=== PATIENT | female | born 1955 | race Caucasian/White ===

== ENCOUNTER 2017-10-11 21:46 | Observation (INO) | payer MEDICARE, OTHER ==
[~2017-10-11] VITALS: Ht 152.4 cm; Wt 97.2 kg
[~2017-10-11 21:46] MED LIST: AMOCLA500 PO; AMOCLA875 PO; ASPI81EC; ASPI81EC PO; ATOR20 PO; Abilify2 MG PO; CELE200; CELE200 PO; CEPH500 PO; CIPR500 PO; CLAR250 PO; CYAN1000 PO; DIAZIDE; DICL75ER; DULO60 PO; ENOX40I SC; EPIN.3I IM; EPIPEN; ERGO400 PO; ESCI10; ESTR1 PO; ESTR2; ESTR2 PO; FAMO20 PO; FENO145 PO; FLONASE ALLERG9.9 ML; FLUO10 PO; FLUOXETINE HCL60 MG PO; FLUT110OIA IH; FOSI10 PO; FURO20 PO; FURO40; FURO40 PO; HYDACE5 PO; HYDGUAL120 PO; HYDMOR2 PO; LEVFLO500 PO; MECL25 PO; METF500; METF500 PO; MORP10S PO; MORP15ER PO; MORP30 PO; NITR100CA PO; OMEP10ER PO; OMEP20ER PO; ONDA4 PO; OXYACE5T PO; PHENA200 PO; PIRO10 PO; POTA8; POTCHL10ER PO; PRAM.5 PO; PRED10 PO; PREG200 PO; PREG25; PREG75 PO; PROM25 PO; Prozac40 MG PO; ROPI1 PO; RXHYDACE PO; RXHYDMOR2 PO; RXONDA4ODT MM; RXPHEN200 PO; SENN187 PO; SUMA25; SUMA25 PO; TRIHYD253A; VENL75ER PO; VITAMIN B122500 MCG PO; VITAMIN D35000 UNIT PO; VOLTAREN; ZEGERID OTC 201 EACH PO; ZOLP5 PO; Zegerid 20 MG1 EACH PO; Zofran Odt8 MG SL; [UNRECOGNIZED DRUG - REMARK]; [UNRECOGNIZED DRUG - REMARK]; [UNRECOGNIZED DRUG - REMARK] PO
[2017-10-11] MEDS ORDERED: RANI150 PO (21:57)
[2017-10-11] MEDS ORDERED: HYDSUL200 PO (21:57)
[2017-10-11] MEDS ORDERED: MIRT15ST MM (21:58)
[2017-10-11 22:27] LABS: BASOPHILS ABSOLUTE AUTO 0.04 K/mm3 (0.00-0.23); BASOPHILS PERCENT AUTO 1 % (0-2); EOSINOPHILS ABSOLUTE AUTO 0.39 K/mm3 (0.00-0.68); EOSINOPHILS PERCENT AUTO 5 % (0-6); Hematocrit 40.1 % (33.0-51.0); Hemoglobin 12.6 g/dL (11.5-16.0); IMMATURE GRAN ABSOLUTE AUTO 0.01 K/mm3 (0.00-0.10); IMMATURE GRAN PERCENT AUTO 0 % (0-1); LYMPHOCYTES ABSOLUTE AUTO 3.94 K/mm3 (0.84-5.20); LYMPHOCYTES PERCENT AUTO 50 % (21-46); MONOCYTES ABSOLUTE AUTO 0.49 K/mm3 (0.16-1.47); MONOCYTES PERCENT AUTO 6 % (4-13); Mean Corpuscular HGB 28.2 pg (26.0-34.0); Mean Corpuscular HGB Conc 31.4 g/dL (31.5-36.5); Mean Corpuscular Volume 90 fL (80-100); Mean Platelet Volume 8.6 fL (9.1-12.4); NEUTROPHILS ABSOLUTE AUTO 3.05 K/mm3 (1.96-9.15); NEUTROPHILS PERCENT AUTO 39 % (41-73); Platelet Count 335 K/mm3 (150-400); RDW Coefficient Variation 13.8 % (11.7-14.2); RDW Standard Deviation 45.1 fL (35.1-46.3); Red Blood Cell Count 4.47 M/mm3 (3.80-5.20); White Blood Cell Count 7.92 K/mm3 (4.00-11.30)
[2017-10-11 22:47] LABS: Alanine Aminotransfer (ALT/SGP 29 U/L (12-78); Albumin, Blood 3.5 g/dL (3.4-5.0); Albumin/Globulin Ratio 0.9 (0.8-1.8); Alk Phos 82 U/L (50-136); Anion Gap 4 mmol/L (6-16); Aspartate Aminotrans (AST/SGOT 23 U/L (12-37); Bilirubin, Total 0.2 mg/dL (0.1-1.0); Blood Urea Nitrogen 14 mg/dL (8-24); Bun/Creatinine Ratio 21.8 (12.0-20.0); CO2, Blood 30 mmol/L (21-32); Calcium, Blood 8.7 mg/dL (8.5-10.1); Chloride, Blood 106 mmol/L (98-108); Creatinine, Blood 0.64 mg/dL (0.40-1.00); Glomerular Filtration Rate >60 (60-); Glucose, Blood 127 mg/dL (70-99); Potassium, Blood 3.7 mmol/L (3.5-5.5); Sodium, Blood 140 mmol/L (136-145); Total Protein, Blood 7.5 g/dL (6.4-8.2)
[2017-10-11 23:17] LABS: Troponin I <0.015 ng/mL (0.000-0.040)
[2017-10-11 23:18] LABS: Source, Urine Clean Catch
[2017-10-11 23:27] LABS: Bilirubin, Urine Neg (Neg); Blood, Urine Neg (Neg); Glucose Qualitative, Urine Neg (Neg); Ketones, Urine Neg (Neg); Leukocyte Esterase, Urine 3+ (Neg); Nitrite, Urine Neg (Neg); Protein, Urine Neg (Neg); Specific Gravity, Urine 1.015 (1.003-1.022); Urobilinogen, Urine NORM (Normal)
[2017-10-11 23:29] LABS: Appearance, Urine Clear (Clear); Color, Urine Amber (P-Yellow)
[2017-10-11 23:37] LABS: Bacteria Few /hpf; Red Blood Cells, Urine Not Seen /hpf (0-2); Squamous Epithelial Cells Few /hpf (Few); White Blood Cells, Urine 0-2 /hpf (0-5)
[2017-10-12 01:10] LABS: Cholesterol 164 mg/dL (50-200); HDL Cholesterol 41 mg/dL (>39); LDL/HDL RATIO Unable to Calculate; Low Density Lipoprotein Chol Unable to Calculate mg/dL (0-110); Triglycerides 540 mg/dL (30-160); Very Low Density Lipoprot Chol Unable to Calculate mg/dL (6-32)
[2017-10-12] MEDS ORDERED: ASPI81CH PO (14:34)
== END 2017-10-12 15:47 | disposition home or self-care (01) ==
LOC: ER 21:46 → MEDS 21:47
PROVIDERS: Emergency Medicine
DX: R40.4 Transient alteration of awareness (principal); I10 Essential (primary) hypertension; E11.9 Type 2 diabetes mellitus without complications; E66.01 Morbid (severe) obesity due to excess calories; M79.7 Fibromyalgia; F41.9 Anxiety disorder, unspecified; G47.33 Obstructive sleep apnea (adult) (pediatric); J32.9 Chronic sinusitis, unspecified; F32.9 Major depressive disorder, single episode, unspecified; M06.9 Rheumatoid arthritis, unspecified; M19.90 Unspecified osteoarthritis, unspecified site; Z88.5 Allergy status to narcotic agent; Z88.8 Allergy status to other drugs, medicaments and biological substances; K21.9 Gastro-esophageal reflux disease without esophagitis; Z68.41 Body mass index [BMI] 40.0-44.9, adult; Z79.899 Other long term (current) drug therapy; Z98.84 Bariatric surgery status; Z90.49 Acquired absence of other specified parts of digestive tract; Z90.710 Acquired absence of both cervix and uterus; Z98.890 Other specified postprocedural states; Z79.01 Long term (current) use of anticoagulants; Z96.651 Presence of right artificial knee joint
CPT/HCPCS: 70450; 70551; 80053; 80061; 81001; 82947; 84484; 85025; 87086; 93005; 93010; 93306; 93880; 94762; 96360; 97161; 99285; G0378; G8978; G8979; G8980; J2060; J2405; J7030

== ENCOUNTER 2019-07-01 10:38 | Day surgery (SDC) | payer MEDICARE, OTHER ==
[~2019-07-01] VITALS: Ht 152.4 cm; Wt 105.2 kg
[~2019-07-01 10:38] MED LIST changes: +ALEN70 PO; +ASPI81CH PO; +Amitriptyline150 MG PO; +EPIPEN 2-P0.3 MG/0.3 IM; +HYDSUL200 PO; +Imitrex100 MG PO; +MIRT15ST MM; +PSEU120ER PO; +RANI150 PO; +VITAMIN D31000 UNI2 PO; +Vitamin B-12100 MCG PO
--- NOTE | 2019-07-01 11:36 | NUR ---
07/01/19 1136 Montse Marks FIRST IV ATTEMPT IN RIGHT HAND WAS UNSUCCESSFUL. SECOND ATTEMPT IN RIGHT AC WAS SUCCESSFUL AND TOLERATED WELL. BOTH BY [facility].RCL.
== END 2019-07-01 12:56 | disposition home or self-care (01) ==
LOC: ORSCSDS 10:38
PROVIDERS: Internal Medicine Gastroenterology
PROC: 0DB68ZX Excision of Stomach, Via Natural or Artificial Opening Endoscopic, Diagnostic (ICD-10-PCS; principal; 2019-07-01 12:00)
PROC: 0DB98ZX Excision of Duodenum, Via Natural or Artificial Opening Endoscopic, Diagnostic (ICD-10-PCS; principal; 2019-07-01 12:00)
DX: K21.9 Gastro-esophageal reflux disease without esophagitis (principal); R11.10 Vomiting, unspecified; M79.7 Fibromyalgia; G47.33 Obstructive sleep apnea (adult) (pediatric); E11.9 Type 2 diabetes mellitus without complications; I10 Essential (primary) hypertension; Z98.84 Bariatric surgery status; K29.70 Gastritis, unspecified, without bleeding; F41.9 Anxiety disorder, unspecified; Z68.42 Body mass index [BMI] 45.0-49.9, adult; E66.9 Obesity, unspecified; Z79.899 Other long term (current) drug therapy
CPT/HCPCS: 88305; 88342; J2704; J7120

== ENCOUNTER → 2019-11-20 | Outpatient (CLI) | payer MEDICARE, OTHER ==
[2019-11-20 10:31] LABS: BASOPHILS ABSOLUTE AUTO 0.04 K/mm3 (0.00-0.23); BASOPHILS PERCENT AUTO 1 % (0-2); EOSINOPHILS ABSOLUTE AUTO 0.27 K/mm3 (0.00-0.68); EOSINOPHILS PERCENT AUTO 5 % (0-6); Hematocrit 42.1 % (33.0-51.0); Hemoglobin 13.4 g/dL (11.5-16.0); IMMATURE GRAN ABSOLUTE AUTO 0.01 K/mm3 (0.00-0.10); IMMATURE GRAN PERCENT AUTO 0 % (0-1); LYMPHOCYTES ABSOLUTE AUTO 2.06 K/mm3 (0.84-5.20); LYMPHOCYTES PERCENT AUTO 39 % (21-46); MONOCYTES PERCENT AUTO 6 % (4-13); Mean Corpuscular HGB 27.9 pg (26.0-34.0); Mean Corpuscular HGB Conc 31.8 g/dL (31.5-36.5); Mean Corpuscular Volume 88 fL (80-100); Mean Platelet Volume 8.7 fL (9.1-12.4); NEUTROPHILS ABSOLUTE AUTO 2.61 K/mm3 (1.96-9.15); NEUTROPHILS PERCENT AUTO 49 % (41-73); Platelet Count 405 K/mm3 (150-400); RDW Coefficient Variation 15.3 % (11.7-14.2); RDW Standard Deviation 48.9 fL (35.1-46.3); Red Blood Cell Count 4.81 M/mm3 (3.80-5.20); White Blood Cell Count 5.29 K/mm3 (4.00-11.30)
[2019-11-20 10:44] LABS: Albumin, Blood 3.6 g/dL (3.4-5.0); Albumin/Globulin Ratio 0.8 (0.8-1.8); Bilirubin, Total 0.5 mg/dL (0.1-1.0); Bun/Creatinine Ratio 7.9 (12.0-20.0); Calcium, Blood 9.5 mg/dL (8.5-10.1); Creatinine, Blood 1.01 mg/dL (0.40-1.00); Globulin, Blood 4.8 g/dL (2.2-4.0); Total Protein, Blood 8.4 g/dL (6.4-8.2)
== END | disposition home or self-care (01) ==
LOC: LAB SHORT 10:26 → LAB EV 10:26
PROVIDERS: Family Medicine
DX: R10.9 Unspecified abdominal pain (principal)
CPT/HCPCS: 80053; 83690; 85025

== ENCOUNTER 2020-06-23 09:14 | Emergency (ER) | payer MEDICARE, OTHER ==
[~2020-06-23] VITALS: Ht 152.4 cm; Wt 104.3 kg
[~2020-06-23 09:14] MED LIST changes: +Neurontin 100100 MG PO; +TRAZ150T57 PO
[2020-06-23 10:43] LABS: BASOPHILS ABSOLUTE AUTO 0.04 K/mm3 (0.00-0.23); BASOPHILS PERCENT AUTO 0 % (0-2); EOSINOPHILS ABSOLUTE AUTO 0.36 K/mm3 (0.00-0.68); EOSINOPHILS PERCENT AUTO 4 % (0-6); Hematocrit 37.6 % (33.0-51.0); Hemoglobin 11.4 g/dL (11.5-16.0); IMMATURE GRAN ABSOLUTE AUTO 0.03 K/mm3 (0.00-0.10); IMMATURE GRAN PERCENT AUTO 0 % (0-1); LYMPHOCYTES ABSOLUTE AUTO 3.04 K/mm3 (0.84-5.20); LYMPHOCYTES PERCENT AUTO 33 % (21-46); MONOCYTES ABSOLUTE AUTO 0.49 K/mm3 (0.16-1.47); MONOCYTES PERCENT AUTO 5 % (4-13); Mean Corpuscular HGB 26.6 pg (26.0-34.0); Mean Corpuscular HGB Conc 30.3 g/dL (31.5-36.5); Mean Corpuscular Volume 88 fL (80-100); Mean Platelet Volume 8.7 fL (9.1-12.4); NEUTROPHILS ABSOLUTE AUTO 5.27 K/mm3 (1.96-9.15); NEUTROPHILS PERCENT AUTO 57 % (41-73); Platelet Count 411 K/mm3 (150-400); RDW Coefficient Variation 15.4 % (11.7-14.2); RDW Standard Deviation 50.3 fL (35.1-46.3); Red Blood Cell Count 4.28 M/mm3 (3.80-5.20); White Blood Cell Count 9.23 K/mm3 (4.00-11.30)
[2020-06-23 10:54] LABS: Alanine Aminotransfer (ALT/SGP 23 U/L (12-78); Albumin/Globulin Ratio 0.7 (0.8-1.8); Alk Phos 80 U/L (50-136); Anion Gap 6 mmol/L (6-16); Aspartate Aminotrans (AST/SGOT 10 U/L (12-37); Bilirubin, Total 0.5 mg/dL (0.1-1.0); Blood Urea Nitrogen 12 mg/dL (8-24); Bun/Creatinine Ratio 14.2 (12.0-20.0); CO2, Blood 28 mmol/L (21-32); Calcium, Blood 8.7 mg/dL (8.5-10.1); Chloride, Blood 104 mmol/L (98-108); Creatinine, Blood 0.84 mg/dL (0.40-1.00); Globulin, Blood 4.1 g/dL (2.2-4.0); Glomerular Filtration Rate >60 (60-); Glucose, Blood 122 mg/dL (70-99); Potassium, Blood 4.1 mmol/L (3.5-5.5); Sodium, Blood 138 mmol/L (136-145); Total Protein, Blood 7.1 g/dL (6.4-8.2)
[2020-06-23] MEDS ORDERED: OXYACE7.5T PO (11:36)
== END 2020-06-23 11:59 | disposition home or self-care (01) ==
LOC: ER 09:14
PROVIDERS: Emergency Medicine
DX: J32.9 Chronic sinusitis, unspecified (principal); I10 Essential (primary) hypertension; E11.9 Type 2 diabetes mellitus without complications; Z88.8 Allergy status to other drugs, medicaments and biological substances; Z88.5 Allergy status to narcotic agent; Z98.890 Other specified postprocedural states; Z79.899 Other long term (current) drug therapy
CPT/HCPCS: 80053; 85025; 96361; 96374; 96375; 99284-25; J0780; J1100; J1200; J7030

== ENCOUNTER 2020-10-10 18:47 | Emergency (ER) | payer MEDICARE, OTHER ==
[~2020-10-10] VITALS: Ht 152.4 cm; Wt 106.6 kg
[~2020-10-10 18:47] MED LIST changes: +OXYACE7.5T PO
== END 2020-10-10 21:30 | disposition home or self-care (01) ==
LOC: ER 18:47
DX: S20.212A Contusion of left front wall of thorax, initial encounter (principal); I10 Essential (primary) hypertension; E11.9 Type 2 diabetes mellitus without complications; Z88.6 Allergy status to analgesic agent; Z88.8 Allergy status to other drugs, medicaments and biological substances; Z79.899 Other long term (current) drug therapy; X50.1XXA Overexertion from prolonged static or awkward postures, initial encounter
CPT/HCPCS: 36415; 99283; A9270

== ENCOUNTER 2020-11-28 18:20 | Emergency (ER) | payer MEDICARE, OTHER ==
[~2020-11-28] VITALS: Ht 152.4 cm; Wt 106.6 kg
[2020-11-28] MEDS ORDERED: Cyclobenzaprine5 MG PO (19:51)
== END 2020-11-28 20:00 | disposition home or self-care (01) ==
LOC: ER 18:20
DX: M79.7 Fibromyalgia (principal); M54.5 Low back pain; G89.29 Other chronic pain; E11.9 Type 2 diabetes mellitus without complications; I10 Essential (primary) hypertension; Z79.899 Other long term (current) drug therapy; Z88.5 Allergy status to narcotic agent; Z88.8 Allergy status to other drugs, medicaments and biological substances; Z88.6 Allergy status to analgesic agent
CPT/HCPCS: 96372; 99283; A9270; J1885

== ENCOUNTER 2021-02-21 07:02 | Day surgery (SDC) | payer MEDICARE, OTHER ==
[~2021-02-21] VITALS: Ht 152.4 cm; Wt 105.4 kg
[~2021-02-21 07:02] MED LIST changes: +Cyclobenzaprine5 MG PO
--- NOTE | 2021-02-21 10:20 | NUR ---
02/21/21 1020 Emily Marks RECEIVED REPORT FROM [facility] AT 1010. PT IS UP IN RECLINER ON 5L O2 VIA MASK. [facility] IS IN THE PROCESS OF NOTIFING DR KELLEY THAT THE PATIENT HAS 5/10 PAIN, WAITING FOR A RESPONSE. IN THE MEANTIME THE PT IS GIVEN APPLE JUICE AND COOKIES, SHE SAYS PAIN IN ACROSS HER EYES AND BRIDGE OF NOSE. I ASKED IF SHE NORMALLY HAS CAFFIENE IN THE MORNING AND SHE TELLS ME SHE USUALLY HAS 2-3 CUPS, I OFFERED COFFEE TO SEE IF THAT HELPS. DR PAGAN ARRIVES TO TALK TO THE PATIENT AND HE GIVES AN ORDER FOR PAIN MEDICATION. I WILL GIVE ORDERED.
== END 2021-02-21 11:14 | disposition home or self-care (01) ==
LOC: ORSCSDS 07:02
PROVIDERS: Otolaryngology
PROC: 8E09XBZ Computer Assisted Procedure of Head and Neck Region (ICD-10-PCS; principal; 2021-02-21 08:30)
PROC: 09DV4ZZ Extraction of Left Ethmoid Sinus, Percutaneous Endoscopic Approach (ICD-10-PCS; principal; 2021-02-21 08:30)
DX: J32.8 Other chronic sinusitis (principal); I10 Essential (primary) hypertension; K21.9 Gastro-esophageal reflux disease without esophagitis; G47.33 Obstructive sleep apnea (adult) (pediatric); E11.9 Type 2 diabetes mellitus without complications; E66.01 Morbid (severe) obesity due to excess calories; Z68.42 Body mass index [BMI] 45.0-49.9, adult; Z79.899 Other long term (current) drug therapy
CPT/HCPCS: C2625; J0171; J1100; J1885; J2250; J2405; J2704; J2710; J3010; J7040; J7120

== ENCOUNTER 2021-04-14 10:46 | Day surgery (SDC) | payer MEDICARE, OTHER ==
[~2021-04-14] VITALS: Ht 152.4 cm; Wt 104.7 kg
[~2021-04-14 10:46] MED LIST changes: +GABA300 PO
--- NOTE | 2021-04-14 11:12 | NUR ---
04/14/21 Chas2 Felicia Guillaume 1 TRY RIGHT UPPER ARM NO FLAS
== END 2021-04-14 12:58 | disposition home or self-care (01) ==
LOC: ORSCSDS 10:46
PROVIDERS: Internal Medicine Gastroenterology
PROC: 0DB78ZX Excision of Stomach, Pylorus, Via Natural or Artificial Opening Endoscopic, Diagnostic (ICD-10-PCS; principal; 2021-04-14 12:00)
PROC: 0DBA8ZX Excision of Jejunum, Via Natural or Artificial Opening Endoscopic, Diagnostic (ICD-10-PCS; principal; 2021-04-14 12:00)
PROC: 0DB98ZX Excision of Duodenum, Via Natural or Artificial Opening Endoscopic, Diagnostic (ICD-10-PCS; principal; 2021-04-14 12:00)
PROC: 0DJD8ZZ Inspection of Lower Intestinal Tract, Via Natural or Artificial Opening Endoscopic (ICD-10-PCS; principal; 2021-04-14 12:00)
DX: D50.9 Iron deficiency anemia, unspecified (principal); K21.9 Gastro-esophageal reflux disease without esophagitis; Z98.84 Bariatric surgery status; K64.4 Residual hemorrhoidal skin tags; E11.42 Type 2 diabetes mellitus with diabetic polyneuropathy; G47.33 Obstructive sleep apnea (adult) (pediatric); E66.01 Morbid (severe) obesity due to excess calories; Z68.42 Body mass index [BMI] 45.0-49.9, adult; Z79.899 Other long term (current) drug therapy
CPT/HCPCS: 82947; 88305; 88342; J2001; J2250; J2704; J7120

== ENCOUNTER 2021-07-29 06:47 | Day surgery (SDC) | payer MEDICARE, OTHER ==
[~2021-07-29] VITALS: Ht 152.4 cm; Wt 105.6 kg
[~2021-07-29 06:47] MED LIST changes: +EPIPEN0.3 MG/0.1 IM; +PANT20 PO; +VITAMIN D31000 UNI1 PO; -VITAMIN D31000 UNI2 PO
[2021-07-29] MEDS ORDERED: ENOX40I (07:21)
== END 2021-07-29 08:56 | disposition home or self-care (01) ==
LOC: ORSCSDS 06:47
PROVIDERS: Internal Medicine Gastroenterology
PROC: 0DJ08ZZ Inspection of Upper Intestinal Tract, Via Natural or Artificial Opening Endoscopic (ICD-10-PCS; principal; 2021-07-29 08:00)
DX: D50.9 Iron deficiency anemia, unspecified (principal); K21.9 Gastro-esophageal reflux disease without esophagitis; E11.9 Type 2 diabetes mellitus without complications; F41.8 Other specified anxiety disorders; E66.01 Morbid (severe) obesity due to excess calories; Z68.42 Body mass index [BMI] 45.0-49.9, adult; Z79.899 Other long term (current) drug therapy
CPT/HCPCS: 82947; J2704; J7120

== ENCOUNTER 2022-04-05 21:04 | Emergency (ER) | payer MEDICARE, OTHER ==
[~2022-04-05] VITALS: Ht 154.9 cm; Wt 104.3 kg
[~2022-04-05 21:04] MED LIST changes: +ENOX40I
[2022-04-05 22:21] LABS: BASOPHILS ABSOLUTE AUTO 0.05 K/mm3 (0.00-0.23); BASOPHILS PERCENT AUTO 1 % (0-2); EOSINOPHILS ABSOLUTE AUTO 0.37 K/mm3 (0.00-0.68); EOSINOPHILS PERCENT AUTO 4 % (0-6); Hematocrit 40.1 % (33.0-51.0); Hemoglobin 12.9 g/dL (11.5-16.0); IMMATURE GRAN ABSOLUTE AUTO 0.02 K/mm3 (0.00-0.10); IMMATURE GRAN PERCENT AUTO 0 % (0-1); LYMPHOCYTES ABSOLUTE AUTO 3.94 K/mm3 (0.84-5.20); LYMPHOCYTES PERCENT AUTO 39 % (21-46); MONOCYTES ABSOLUTE AUTO 0.55 K/mm3 (0.16-1.47); MONOCYTES PERCENT AUTO 5 % (4-13); Mean Corpuscular HGB 29.5 pg (26.0-34.0); Mean Corpuscular HGB Conc 32.2 g/dL (31.5-36.5); Mean Corpuscular Volume 92 fL (80-100); NEUTROPHILS ABSOLUTE AUTO 5.23 K/mm3 (1.96-9.15); NEUTROPHILS PERCENT AUTO 52 % (41-73); Platelet Count 331 K/mm3 (150-400); RDW Standard Deviation 47.6 fL (35.1-46.3); Red Blood Cell Count 4.37 M/mm3 (3.80-5.20); White Blood Cell Count 10.16 K/mm3 (4.00-11.30)
[2022-04-05 22:36] LABS: Albumin, Blood 3.7 g/dL (3.4-5.0); Albumin/Globulin Ratio 0.9 (0.8-1.8); Bilirubin, Total 0.4 mg/dL (0.1-1.0); Bun/Creatinine Ratio 29.4 (12.0-20.0); Calcium, Blood 9.4 mg/dL (8.5-10.1); Creatinine, Blood 0.71 mg/dL (0.40-1.00); Potassium, Blood 4.3 mmol/L (3.5-5.5); Total Protein, Blood 7.7 g/dL (6.4-8.2)
[2022-04-06] MEDS ORDERED: CEPH500 PO (02:26)
== END 2022-04-06 03:26 | disposition home or self-care (01) ==
LOC: ER 21:04
PROVIDERS: Physician Assistant
DX: L03.116 Cellulitis of left lower limb (principal); R60.0 Localized edema; Z88.6 Allergy status to analgesic agent; Z88.1 Allergy status to other antibiotic agents; Z88.5 Allergy status to narcotic agent; Z88.8 Allergy status to other drugs, medicaments and biological substances; Z79.899 Other long term (current) drug therapy; I10 Essential (primary) hypertension; E11.9 Type 2 diabetes mellitus without complications; G47.33 Obstructive sleep apnea (adult) (pediatric)
CPT/HCPCS: 36415; 80053; 85025; 93971; 96374; 99284-25; A9270; J1885

== ENCOUNTER → 2022-12-11 | Outpatient (CLI) | payer MEDICARE, BC | END | disposition home or self-care (01) | LOC: LAB 15:09 → LAB SHORT 15:09 | DX: J32.8 Other chronic sinusitis (principal) | CPT/HCPCS: 87070; 87077; 87147; 87186 ==

== ENCOUNTER 2022-12-29 11:06 | Day surgery (SDC) | payer MEDICARE, BC ==
[~2022-12-29] VITALS: Ht 154.9 cm; Wt 117.2 kg
[2022-12-29] MEDS ORDERED: AMITRIPTYLINE100 M2 (12:19)
[2022-12-29] MEDS ORDERED: LIDOCAINE (12:20)
[2022-12-29] MEDS ORDERED: METF500 (12:21)
[2022-12-29] MEDS ORDERED: BOTOX (12:21)
[2022-12-29] MEDS ORDERED: SODIUM HYALURONATE (12:23)
--- NOTE | 2022-12-29 13:08 | NUR ---
12/29/22 130 AMBER PIERRE LIDOCAIN 2% VISCOUS SWISH AND SWALLOW AND LIDOCAINE 4% ATOMIZED TO BACK OF THROAT PRE EGD PER DR CARREON
[2022-12-29 14:08] VITALS: BP 143/93
== END 2022-12-29 14:08 | disposition home or self-care (01) ==
LOC: ORSCSDS 11:06
PROVIDERS: Internal Medicine Gastroenterology
PROC: 0DB78ZX Excision of Stomach, Pylorus, Via Natural or Artificial Opening Endoscopic, Diagnostic (ICD-10-PCS; principal; 2022-12-29 12:30)
DX: D50.9 Iron deficiency anemia, unspecified (principal); K29.70 Gastritis, unspecified, without bleeding; I10 Essential (primary) hypertension; E11.9 Type 2 diabetes mellitus without complications; K21.9 Gastro-esophageal reflux disease without esophagitis; G47.33 Obstructive sleep apnea (adult) (pediatric); E66.01 Morbid (severe) obesity due to excess calories; Z68.42 Body mass index [BMI] 45.0-49.9, adult; Z79.899 Other long term (current) drug therapy
CPT/HCPCS: 82947; 88305; 88341; 88342; A9270; J0330; J0461; J2001; J2405; J2704; J7120; Q9968

== ENCOUNTER 2023-04-20 09:26 | Day surgery (SDC) | payer MEDICARE, BC ==
[~2023-04-20] VITALS: Ht 152.4 cm; Wt 113.4 kg
[2023-04-20] VITALS (9 sets, daily range): BP systolic 103–133; BP diastolic 63–89
[~2023-04-20 09:26] MED LIST changes: +AMITRIPTYLINE100 M2; +ATOR40TA PO; +Aspir 8181 MG PO; +BOTOX; +DESVENLAFAXINE50 M3 PO; +DIAZEPAM5 M2 PO; +DULOXETINE HCL60 M1 PO; +HYDROCODONE-AC1 EA19 PO; +IMITREX100 MG PO; +Inderal40 MG PO; +LIDOCAINE; +OZEMPIC0.25 MG/01 SQ; +SODIUM HYALURONATE; +TIZANIDINE HCL213 PO; +Ventolin/Prove6.7 GM
--- NOTE | 2023-04-20 13:04 | NUR ---
PT RETURNED TO RECOVERY ROOM IN RECLINER. RIGHT RADIAL TR BAND SITE SOFT NON-TENDER WITH NO HEMATOMA, NO PULSATILE BLEEDING AND WRIST BOARD IN PLACE. PT DRINKING COFFEE; PT DENIES CHEST PAIN. CALL LIGHT IN REACH.
--- NOTE | 2023-04-20 13:16 | NUR ---
FULL REPORT PROVIDED ANNETTE Benavidez RN TO ASSUME CARE OF PT.
--- NOTE | 2023-04-20 13:45 | NUR ---
ASSUMED CARE OF PT AT THIS TIME. R RADIAL SITE WITH TR BAND FULLY INFALTED. SITE C/D/I SOFT/NONTENDER, NO EVIDNECE OF HEMATOMA. PATIENT DENYING ANY PAIN. VSS ON RA. PATIENT SITTING COMFORTABLY IN RECLINER, TOELRATING PO INTAKE WELL.
--- NOTE | 2023-04-20 14:02 | NUR ---
INITAL 2 CC OF AIR REMOVED FROM R RADIAL TR BAND. SITE C/D/I SOFT/NONTENDER, NO EVIDENCE OF HEMATOMA. PATIENT DENYING ANY CP. PATIENT RESTING COMFORTABLY IN RECLINER.
--- NOTE | 2023-04-20 14:40 | NUR ---
ALL AIR REMOVED FROM R RADIAL TR BAND. SITE C/D/I SOFT/NONTENDER, NO EVIDENCE OF HEMATOMA. VSS ON RA. PATIENT RESTING COMFORTABLY IN RECLINER. PATIENT DISCHARGE INSTRUCTIONS REVIEWED WITH PATIENT AND SPOUSE, ALL QUESTIONS WERE ANSWERED.
--- NOTE | 2023-04-20 15:14 | NUR ---
TR BAND REMOVED FROM R RADIAL SITE, CLOTH DOT APPLIED WITH ARM BOARD. PATIENT INSTRUCTED ON RADIAL SITE CARE. SITE C/D/I SOFT/NONTENDER, NO EVIDENCE OF HEMATOMA. PATIENT DENYING ANY CP. PIV REMOVED WITHOUT DIFFICULTY, CATHETER INTACT.
--- NOTE | 2023-04-20 15:15 | NUR ---
PATIENT DISCHARGED HOME AT THIS TIME. ALL PATIENT BELONGINGS AND PAPERWORK LEFT WITH PATIENT. PATIENT WHEELED TO [facility] AND SPOUSE ABLE TO PROVIDE TRANSPORTATION HOME.
== END 2023-04-20 15:23 | disposition home or self-care (01) ==
LOC: MHTC 09:26
DX: R07.9 Chest pain, unspecified (principal); E66.01 Morbid (severe) obesity due to excess calories; I10 Essential (primary) hypertension; E11.9 Type 2 diabetes mellitus without complications; Z88.8 Allergy status to other drugs, medicaments and biological substances; Z88.5 Allergy status to narcotic agent; Z68.42 Body mass index [BMI] 45.0-49.9, adult; G43.909 Migraine, unspecified, not intractable, without status migrainosus; G47.33 Obstructive sleep apnea (adult) (pediatric)
CPT/HCPCS: 76937; 82947; 93454; 99152; A9270; C1769; C1887; C1894; J1644; J2250; J3010; J7030; J7050; Q9967

== ENCOUNTER → 2024-01-15 | Outpatient (CLI) | payer MEDICARE, BC | END | disposition home or self-care (01) | LOC: LAB 18:27 → LAB SHORT 18:27 | DX: J32.8 Other chronic sinusitis (principal) | CPT/HCPCS: 87070; 87077; 87147; 87186 ==

== ENCOUNTER 2025-03-24 06:29 | Day surgery (SDC) | payer MEDICARE, BC ==
[2025-03-24] VITALS (26 sets, daily range): BP systolic 84–141; BP diastolic 28–73
[~2025-03-24] VITALS: Ht 153.7 cm; Wt 105.0 kg
[~2025-03-24 06:29] MED LIST changes: -OZEMPIC0.25 MG/01 SQ; +OZEMPIC0.25 MG/02 SC
[2025-03-24] MEDS ORDERED: CeFAZolin Sodium 2,000 MG in NS 100 ML IV SCH ×2 (06:40→18:00)
[2025-03-24] MEDS ORDERED: Chlorhexidine Mouth Care 15 ML UDC MT SCH (06:40)
[2025-03-24] MEDS ORDERED: Ropivacaine 0.5% HCl/Pf 123.125 MG,EPINEPHrine HCL 0.25 MG,Ketorolac Tromethamine 15 MG... INFIL SCH (06:40)
[2025-03-24] MEDS ORDERED: Bupivacaine 0.5% Inj 10 ML Vial ONE (06:47)
[2025-03-24] MEDS ORDERED: Dexmedetomidine HCL 200 MCG / 2 ML ONE (06:47)
[2025-03-24] MEDS ORDERED: Dexamethasone Sod Phos 10 MG/ML 1ML VIAL ONE (06:51)
[2025-03-24] MEDS ORDERED: Ondansetron HCl 2 MG / ML 2ML Vial ONE (06:51)
[2025-03-24] MEDS ORDERED: Tranexamic Acid 100 ML IV SCH (07:06)
[2025-03-24] MEDS ORDERED: HYDR1TAB94 PO (07:06)
[2025-03-24] MEDS ORDERED: UBRELVY100 MG PO (07:07)
[2025-03-24] MEDS ORDERED: FURO20 PO (07:07)
[2025-03-24] MEDS ORDERED: MEMA10 PO (07:08)
[2025-03-24] MEDS ORDERED: PRAM.125 PO (07:10)
[2025-03-24] MEDS ORDERED: SENNA LAXATIVE8.6 MG PO (07:11)
[2025-03-24] MEDS ORDERED: BELSOMRA20 MG PO (07:12)
--- NOTE | 2025-03-24 07:42 | NUR ---
Ambulatory in Day Surgery, accompanied by her Jean. History, Chart, Medications and Allergies reviewed before start of procedure. Lungs clear T/O to Auscultation. Patient confirms NPO status and agrees with scheduled surgery. Pre-Op teaching done. Pt verbalizes understanding. PT BELONGINGS PLACED UNDERNEATH GURNEY FOR SAFEKEEPING.
[2025-03-24] MEDS ORDERED: HYDROmorphone HCl/Pf 1MG SYR ONE (07:52)
[2025-03-24] MEDS ORDERED: Metoclopramide HCl 5MG / ML 2ML Vial ONE (08:08)
[2025-03-24] MEDS ORDERED: Albuterol 2.5 MG/3 ML VIAL INH PRN (08:15)
[2025-03-24] MEDS ORDERED: Metoclopramide HCl 5MG / ML 2ML Vial IV PRN ×2 (08:15→09:55)
[2025-03-24] MEDS ORDERED: Ondansetron HCl 2 MG / ML 2ML Vial IV PRN ×2 (08:15→10:00)
[2025-03-24] MEDS ORDERED: HYDROmorphone HCl/Pf 1MG SYR IV PRN ×2 (08:15→10:05)
[2025-03-24] MEDS ORDERED: FentaNYL Citrate 50 MCG/ML 2 ML Injection IV PRN ×3 (08:15→08:20)
[2025-03-24] MEDS ORDERED: ePHEDrine Sulfate 50 MG/ML 1ML Injection ONE ×2 (09:22→11:50)
[2025-03-24] MEDS ORDERED: Magnesium Hydroxide Conc 10 ML UDC PO PRN (09:55)
[2025-03-24] MEDS ORDERED: UBROGEPANT 100 MG PO PRN (10:20)
[2025-03-24] MEDS ORDERED: Phenylephrine HCl 100 MCG/ML-NS 10MLSYR (1MG/10ML) ONE (10:28)
[2025-03-24] MEDS ORDERED: Ketorolac Tromethamine 30mg Vial ONE ×2 (10:29→12:15)
[2025-03-24] MEDS ORDERED: Glycopyrrolate 0.2 MG/ML 5ML VIAL ONE (10:38)
[2025-03-24] MEDS ORDERED: Insulin Regular 100 UNIT/ML 10ML Vial SC SCH (11:30)
[2025-03-24] MEDS ORDERED: ePHEDrine Sulfate 50 MG/ML 1ML Injection IV PRN ×2 (11:55→12:05)
[2025-03-24] MEDS ORDERED: Ketorolac Tromethamine 15mg Vial IV SCH (12:00)
--- NOTE | 2025-03-24 12:33 | NUR ---
POST OP ARRIVAL TO SURGICAL UNIT VIA HOSPITAL BED. ASSESSMENT CHARTED. PAIN TOLERABLE. CRYOTHERAPY TO L HIP. NO DRNG NOTED TO DRSG/CLAIRE WRAP. SNACKS & DRINKS GIVEN.
[2025-03-24] MEDS ORDERED: ELIQUIS2.5 MG PO (16:34)
--- NOTE | 2025-03-24 17:17 | NUR ---
Pt. is awake in a recliner and welcomes my visit. Pt. is pleasant, and verbalizes her expectation to be discharged home soon. Daughter is at bedside. Facilitate a life review and considered matters of polina and belief. Pt. displays evidence of trust and encouragement. Prayed for the Pt. Pt. verbalized gratitude for the spiritual care visit.
--- NOTE | 2025-03-24 18:23 | NUR ---
DISCHARGE PT WORKED w/ THERAPY. PAIN WELL CONTROLLED. EATING, DRINKING, & VOIDING WELL. POLAR PACK SENT w/ PT. ESCORTED OUT VIA W/C.
[2025-03-24] MEDS ORDERED: DULoxetine HCL 20 MG Cap DR PO SCH (21:00)
[2025-03-25] MEDS ORDERED: Cholecalciferol 1000 Unit Tablet (=25MCG) PO SCH (09:00)
[2025-03-25] MEDS ORDERED: MetFORMIN HCl 500 mg PO SCH (09:00)
[2025-03-30] MEDS ORDERED: SEMAGLUTIDE 0.25 MG SC SCH (09:00)
== END 2025-03-24 18:06 | disposition home or self-care (01) ==
LOC: ORSCMMR 06:29 → ORD 08:15 → SURS 11:35 → ORSCMMR 18:06
PROVIDERS: Orthopaedic Surgery
PROC: 0SRD0JA Replacement of Left Knee Joint with Synthetic Substitute, Uncemented, Open Approach (ICD-10-PCS; principal; 2025-03-24 08:15)
DX: M17.12 Unilateral primary osteoarthritis, left knee (principal); I10 Essential (primary) hypertension; E78.5 Hyperlipidemia, unspecified; G47.33 Obstructive sleep apnea (adult) (pediatric); K21.9 Gastro-esophageal reflux disease without esophagitis; E11.9 Type 2 diabetes mellitus without complications; Z86.73 Personal history of transient ischemic attack (TIA), and cerebral infarction without residual deficits; E66.01 Morbid (severe) obesity due to excess calories; Z68.41 Body mass index [BMI] 40.0-44.9, adult; Z79.84 Long term (current) use of oral hypoglycemic drugs; Z79.899 Other long term (current) drug therapy; Z96.651 Presence of right artificial knee joint
CPT/HCPCS: 73560-LT; 82947; 97110; 97116; 97161; 97530; A9270; C1713; C1776; J0165; J0690; J0735; J1100; J1171; J1885; J2371; J2405; J2704; J2765; J2795; J7120

== ENCOUNTER 2025-05-05 10:07 | Day surgery (SDC) | payer MEDICARE, BC ==
[~2025-05-05] VITALS: Ht 152.4 cm; Wt 105.8 kg
[~2025-05-05 10:07] MED LIST changes: +BELSOMRA20 MG PO; +Balanced Salt Epinephrine Irrigation Solution 500 mL IR SCH; +ELIQUIS2.5 MG PO; +HYDR1TAB94 PO; +MEMA10 PO; +Moxifloxacin HCL 0.5 MG/0.1 ML 0.4MLSYR LEFTEYE SCH; +PHENYLEPHRINE\\TROPICAMIDE\\TETRACAINE OPHTHALMIC DILATING SOLN LEFTEYE PRN; +PRAM.125 PO; +Povidone-Iodine 450 DROP/30 ML Solution LEFTEYE SCH; +Povidone-Iodine 450 DROP/30 ML Solution ONE; +SENNA LAXATIVE8.6 MG PO; +Tetracaine HCl/Pf 0.5% Opth Soln 4 ml ONE; +UBRELVY100 MG PO
[2025-05-05] MEDS ORDERED: MELO7.5 PO (10:34)
[2025-05-05] MEDS ORDERED: VENLAFAXINE HCL75 M2 PO (10:34)
[2025-05-05] MEDS ORDERED: NS 500 ML IV ONE (10:48)
[2025-05-05] MEDS ORDERED: Tetracaine HCl 0.5% Opth Soln 15 ml LEFTEYE ONE (10:56)
[2025-05-05] MEDS ORDERED: Midazolam HCl 1MG / ML 2ML Vial ONE ×2 (10:56→10:59)
--- NOTE | 2025-05-05 10:59 | NUR ---
05/05/25 1059 Katharine Pruitt TETRACAINE IN AT 1030 PLEGETT IN AT 1031
[2025-05-05 11:22] VITALS: BP 123/69
== END 2025-05-05 11:40 | disposition home or self-care (01) ==
LOC: ORSCSDS 10:07
PROVIDERS: Student in an Organized Health Care Education/Training Program
PROC: 08RK3JZ Replacement of Left Lens with Synthetic Substitute, Percutaneous Approach (ICD-10-PCS; principal; 2025-05-05 11:30)
DX: E11.36 Type 2 diabetes mellitus with diabetic cataract (principal); H25.812 Combined forms of age-related cataract, left eye; Z96.1 Presence of intraocular lens; I10 Essential (primary) hypertension; G47.33 Obstructive sleep apnea (adult) (pediatric); F41.9 Anxiety disorder, unspecified; M79.7 Fibromyalgia; E66.01 Morbid (severe) obesity due to excess calories; Z68.41 Body mass index [BMI] 40.0-44.9, adult; Z79.82 Long term (current) use of aspirin; Z79.84 Long term (current) use of oral hypoglycemic drugs; Z79.85 Long-term (current) use of injectable non-insulin antidiabetic drugs; Z79.899 Other long term (current) drug therapy
CPT/HCPCS: 82947; J2250; V2632

== ENCOUNTER → 2025-06-22 | Outpatient (CLI) | payer MEDICARE, BC ==
[~2025-06-22] MED LIST changes: -Balanced Salt Epinephrine Irrigation Solution 500 mL IR SCH; +MELO7.5 PO; -Moxifloxacin HCL 0.5 MG/0.1 ML 0.4MLSYR LEFTEYE SCH; -PHENYLEPHRINE\\TROPICAMIDE\\TETRACAINE OPHTHALMIC DILATING SOLN LEFTEYE PRN; -Povidone-Iodine 450 DROP/30 ML Solution LEFTEYE SCH; -Povidone-Iodine 450 DROP/30 ML Solution ONE; -Tetracaine HCl/Pf 0.5% Opth Soln 4 ml ONE; +VENLAFAXINE HCL75 M2 PO
== END ==
LOC: LAB 13:10 → LAB SHORT 13:10
DX: L08.0 Pyoderma (principal)
CPT/HCPCS: 87070; 87075; 87077; 87186; 87205